=== PATIENT | female | born 1980 | race African-American/Black ===

== ENCOUNTER 2017-04-21 16:36 | Emergency (ER) | payer OTHER ==
[~2017-04-21] VITALS: Ht 165.1 cm; Wt 122.1 kg
[~2017-04-21 16:36] MED LIST: ALPRAZOLAM1 MG PO; ANTIVERT25 MG PO; ERGOCALCIF50000 UNIT PO; ESCITALOPRAM OX10 MG PO; FERROUS SULFAT325 MG PO; HYDROCHLOROTHIA25 MG PO; MEGACE20 MG PO; OMEPRAZOLE20 M2 PO; SEROQUEL100 MG PO; ZOFRAN4 MG PO
[2017-04-21] MEDS ORDERED: SKELAXIN800 MG PO (19:24)
[2017-04-21] MEDS ORDERED: NAPROSYN500 MG PO (19:24)
[2017-04-21 19:36] VITALS: BP 138/91
== END 2017-04-21 19:36 | disposition home or self-care (01) ==
LOC: EME 16:36
DX: S29.011A Strain of muscle and tendon of front wall of thorax, initial encounter (principal); V89.2XXA Person injured in unspecified motor-vehicle accident, traffic, initial encounter; Y92.411 Interstate highway as the place of occurrence of the external cause; M54.2 Cervicalgia; F41.9 Anxiety disorder, unspecified; F32.9 Major depressive disorder, single episode, unspecified; Z98.84 Bariatric surgery status
CPT/HCPCS: 71020; 99281; 99284